=== PATIENT | male | born 1990 | race Hispanic/Latino ===

== ENCOUNTER 2020-08-12 10:56 | Emergency (ER) | payer OTHER ==
[2020-08-12] MEDS ORDERED: HYDROCODONE/APAP 7.5/325 MG TAB ONE (14:07)
--- NOTE | 2020-08-12 14:17 | RAD REPORT ---
EXAM DESCRIPTION: CT - Thorax Wo Con - 08/12/2020 1:59 pm CLINICAL HISTORY: Chest pain status post fall COMPARISON: None TECHNIQUE: Computed axial tomography of the chest was obtained. Contrast was not requested. All CT scans are performed using dose optimization technique as appropriate and may include automated exposure control or mA/KV adjustment according to patient size. FINDINGS: The evaluation of mediastinum, zakiya and vessels is limited secondary to lack of IV contras t administration. Mildly displaced comminuted fracture posterior left eleventh rib. No pneumothorax. A mediastinal hematoma is not seen. A pulmonary contusion is not noted A pleural effusion is not present. A pericardial effusion is not seen IMPRESSION: Mildly displaced comminuted fracture posterior left eleventh rib
--- NOTE | 2020-08-12 14:32 | EDPHYS ---
Physician Documentation [facility] Name: Gabe Hudson Age: 30 yrs Sex: Male : 1990 Arrival Date: 08/12/2020 Time: 11:04 Bed 16 Private MD: ED Physician Trenton Plascencia HPI: 08/12 14:28 This 30 yrs old Male presents to ER via Wheelchair with complaints of Facial kb Injury, Rib pain. 14:28 The patient has not experienced similar symptoms in the past. The patient has not kb recently seen a physician. 14:29 Details of fall: The patient fell from an upright position, standing in the shower. kb Onset: The symptoms/episode began/occurred last night. Associated injuries: The patient sustained injury to the chest, specifically the left lateral posterior chest, pain with breathing, pain with movement, tenderness. Severity of symptoms: At their worst the symptoms were moderate, in the emergency department the symptoms are unchanged. Pt reports he slipped in the shower last night. c/o posterior left rib pain. Historical: - Allergies: 11:37 No Known Allergies; tw2 - Home Meds: 11:37 None [Active]; tw2 - PMHx: 11:37 None; tw2 - PSHx: 11:37 None; tw2 - Immunization history:: Adult Immunizations. - Social history:: Smoking status: . ROS: 14:26 Constitutional: Negative for fever, chills, and weight loss, Respiratory: Negative for kb shortness of breath, cough, wheezing, and pleuritic chest pain, Abdomen/GI: Negative for abdominal pain, nausea, vomiting, diarrhea, and constipation, MS/Extremity: Negative for injury and deformity, Skin: Negative for injury, rash, and discoloration, Neuro: Negative for headache, weakness, numbness, tingling, and seizure. 14:26 Cardiovascular: Positive for chest pain, with cough, with movement, of the left lateral anterior chest and left lateral posterior chest. Exam: 14:26 Constitutional: This is a well developed, well nourished patient who is awake, alert, kb and in no acute distress. Head/Face: Normocephalic, atraumatic. Cardiovascular: Regular rate and rhythm with a normal S1 and S2. No gallops, murmurs, or rubs. No pulse deficits. Respiratory: Respirations even and unlabored. No increased work of breathing, no retractions or nasal flaring. Skin: Warm, dry with normal turgor. Normal color. MS/ Extremity: Pulses equal, no cyanosis. Neurovascular intact. Full, normal range of motion. Neuro: Awake and alert, GCS 15, oriented to person, place, time, and situation. Moves all extremities. Normal gait. 14:26 Chest/axilla: Inspection: normal, Palpation: crepitus, is not appreciated, tenderness, that is moderate, of the left lateral posterior chest, that totally reproduces the patient's complaints. Vital Signs: 11:35 BP 134 / 71; Pulse 76; Resp 17; Temp 97.9(TE); Pulse Ox 100% ; Weight 78.02 kg (R); tw2 MDM: 13:37 Patient medically screened. kb 14:26 Data reviewed: vital signs, nurses notes. Data interpreted: Pulse oximetry: on room air kb is 100 %. Interpretation: normal. Counseling: I had a detailed discussion with the patient and/or guardian regarding: the historical points, exam findings, and any diagnostic results supporting the discharge/admit diagnosis, radiology results, the need for outpatient follow up, a family practitioner, to return to the emergency department if symptoms worsen or persist or if there are any questions or concerns that arise at home. 08/12 13:43 Order name: CT Chest Wo Con; Complete Time: 14:17 kb Administered Medications: 13:55 Drug: [place] (HYDROcodone-acetaminophen) (7.5 mg-325 mg) 1 tabs Route: PO; em 14:30 Follow up: Response: No adverse reaction; Pain is unchanged, physician notified; RASS: em Alert and Calm (0) 14:33 Drug: TORadol (ketorolac) 30 mg Route: IM; Site: left deltoid; em 14:44 Follow up: Response: Medication administered at discharge. em Disposition: 08/13 11:19 Co-signature as Attending Physician, Trenton Plascencia MD I agree with the assessment and khoa plan of care. Disposition: 08/12/20 14:31 Discharged to Home. Impression: Fracture of one rib, left side. - Condition is Stable. - Discharge Instructions: Rib Fracture, [id number]. - Prescriptions for Tylenol- Codeine #3 300-30 mg Oral Tablet - take 2 tablets by ORAL route every 6 hours As needed; 30 tablet. Ibuprofen 800 mg Oral Tablet - take 1 tablet by ORAL route every 8 hours As needed take with food; 30 tablet. - Medication Reconciliation Form, Thank You Letter, Antibiotic Education, Prescription Opioid Use, Work release form form. - Follow up: Emergency Department; When: As needed; Reason: Worsening of condition. Follow up: Private Physician; When: 2 - 3 days; Reason: Recheck today's complaints, Continuance of care, Re-evaluation by your physician. Signatures: Dispatcher [employer] EDMS Jesica Watkins, ELECTRONIC GAME DEVELOPER-C ELECTRONIC GAME DEVELOPER-Trenton Lazo MD MD cha Munoz, Edgar, RN RN Viry Fernandez RN RN tw2 Corrections: (The following items were deleted from the chart) 08/12 14:52 14:31 08/12/2020 14:31 Discharged to Home. Impression: Fracture of one rib, left side. em Condition is Stable. Forms are Medication Reconciliation Form, Thank You Letter, Antibiotic Education, Prescription Opioid Use. Follow up: Emergency Department; When: As needed; Reason: Worsening of condition. Follow up: Private Physician; When: 2 - 3 days; Reason: Recheck today's complaints, Continuance of care, Re-evaluation by your physician. kb
--- NOTE | 2020-08-12 14:32 | ER ---
Nurse's Notes [facility] Name: Gabe Hudson Age: 30 yrs Sex: Male : 1990 Arrival Date: 08/12/2020 Time: 11:04 Bed 16 Private MD: Diagnosis: Fracture of one rib, left side Presentation: 08/12 11:35 Chief complaint: [facility] "yesterday i was taking a shower tw2 and slipped and fell on my back, now everytime i try to move it hurts". Coronavirus screen: At this time, the client does not indicate any symptoms associated with coronavirus-19. Ebola Screen: Patient denies travel to an Ebola-affected area in the 21 days before illness onset. Initial Sepsis Screen: Does the patient meet any 2 criteria? No. Patient's initial sepsis screen is negative. Does the patient have a suspected source of infection? No. Patient's initial sepsis screen is negative. Risk Assessment: Do you want to hurt yourself or someone else? Patient reports no desire to harm self or others. Onset of symptoms was August 12, 2020. 11:35 Method Of Arrival: Wheelchair tw2 11:35 Acuity: KATHERIN 4 tw2 11:37 Chief complaint: "left ribs and back pain". tw2 Triage Assessment: 11:37 General: Appears in no apparent distress. slender, well groomed, Behavior is calm, tw2 cooperative, appropriate for age. Pain: Complains of pain in back and left ribs. Historical: - Allergies: 11:37 No Known Allergies; tw2 - Home Meds: 11:37 None [Active]; tw2 - PMHx: 11:37 None; tw2 - PSHx: 11:37 None; tw2 - Immunization history:: Adult Immunizations. - Social history:: Smoking status: . Screenin:38 Abuse screen: Denies threats or abuse. Nutritional screening: No deficits noted. em Tuberculosis screening: No symptoms or risk factors identified. Fall Risk None identified. Assessment: 13:40 General: Appears in no apparent distress. uncomfortable, Behavior is calm, cooperative, em appropriate for age. Pain: Complains of pain in left lateral anterior chest Pain currently is 8 out of 10 on a pain scale. Pain began 1 day ago. Neuro: Level of Consciousness is awake, alert, obeys commands, Oriented to person, place, time, situation. Cardiovascular: Capillary refill < 3 seconds Patient's skin is warm and dry. Respiratory: Reports pain with respiration since 1 day ago Airway is patent Respiratory effort is even, unlabored, Respiratory pattern is regular, symmetrical. GI: Abdomen is flat. Derm: Skin is intact, is healthy with good turgor, Skin is pink, warm \\T\\ dry. Musculoskeletal: Capillary refill < 3 seconds, Range of motion: intact in all extremities. 14:20 Reassessment: Patient appears in no apparent distress at this time. pain unchanged, em provider at bedside Patient states symptoms have not improved. Vital Signs: 11:35 BP 134 / 71; Pulse 76; Resp 17; Temp 97.9(TE); Pulse Ox 100% ; Weight 78.02 kg (R); tw2 ED Course: 11:04 Patient arrived in ED. mr 11:36 Triage completed. tw2 11:37 Arm band placed on. tw2 13:36 Jesica Watkins FNP-C is PHCP. kb 13:36 Trenton Plascencia MD is Attending Physician. kb 13:38 Phillip Rock, MARTHA is Primary Nurse. em 13:38 Patient has correct armband on for positive identification. Placed in gown. Bed in low em position. Call light in reach. Adult w/ patient. 13:59 CT Chest Wo Con In Process Unspecified. EDMS 14:43 No provider procedures requiring assistance completed. Patient did not have IV access em during this emergency room visit. Administered Medications: 13:55 Drug: [place] (HYDROcodone-acetaminophen) (7.5 mg-325 mg) 1 tabs Route: PO; em 14:30 Follow up: Response: No adverse reaction; Pain is unchanged, physician notified; RASS: em Alert and Calm (0) 14:33 Drug: TORadol (ketorolac) 30 mg Route: IM; Site: left deltoid; em 14:44 Follow up: Response: Medication administered at discharge. em Outcome: 14:31 Discharge ordered by . kb 14:44 Discharged to home ambulatory, with family. em 14:44 Condition: stable 14:44 Discharge instructions given to patient, family, Instructed on discharge instructions, follow up and referral plans. medication usage, Demonstrated understanding of instructions, follow-up care, medications, Prescriptions given X 2. 14:52 Patient left the ED. em Signatures: Dispatcher [employer] Jesica Merino, CONCEPCIÓN AVINA-Chloe Vinson Edgar, RN RN em Viry Decker RN RN tw2
[2020-08-12] MEDS ORDERED: KETOROLAC 30 MG/ML INJ ONE (14:49)
[2020-08-12 15:02] VITALS: BP 134/71; TEMP 97.9; O2SAT 100
== END 2020-08-12 14:52 | disposition home or self-care (01) ==
LOC: ER 10:56
DX: S22.32XA Fracture of one rib, left side, initial encounter for closed fracture (principal); W18.2XXA Fall in (into) shower or empty bathtub, initial encounter; Y93.E1 Activity, personal bathing and showering
CPT/HCPCS: 71250; 96372; 99283